=== PATIENT | male | born 1985 | race American Indian/Alaskan Native ===

== ENCOUNTER 2017-10-27 20:11 | Emergency (ER) | payer SELFPAY ==
[2017-10-27 20:22] VITALS: BMI 25.8
[2017-10-27 20:26] VITALS: BP 118/83; RESP 18; TEMP 99.6; O2SAT 96
[2017-10-27 20:27] VITALS: PULSE 99
--- NOTE | 2017-10-27 20:45 | ED PDOC ---
Arrival/HPI <Rian Ayala - Last Filed: 10/27/17 20:57> <Jonnathan Iqbal - Last Filed: 10/27/17 21:49> - General Chief Complaint: Syncope - History of Present Illness Narrative History of Present Illness (Text): 10/27/17 20:40 Pt is a 32 yo M with no significant PMH presents to ED with 2 day history of flu -like symptoms. Pt states that symptoms began with sore throat and progressed to productive cough with yellow sputum. Pt also complains of [place], one episode of dizziness, chest tightness, mild shortness of breath with exertion, chills, and fatigue. Pt denied nausea, vomiting, diarrhea, abdominal pain, fever, generalized body aches, dysuria, or sinus congestion/pain. Pt did not get flu vaccination this year. Pt denies any recent sick contacts. (Jonnathan Iqbal) Past Medical History - Provider Review Nursing Documentation Reviewed: Yes - Cardiac Hx Cardiac Disorders: No - Pulmonary Hx Respiratory Disorders: No - Neurological Hx Neurological Disorder: No - HEENT Hx HEENT Disorder: No - Renal Hx Renal Disorder: No - Endocrine/Metabolic Hx Endocrine Disorders: No - Hematological/Oncological Hx Blood Disorders: No - Integumentary Hx Dermatological Disorder: No - Musculoskeletal/Rheumatological Hx Musculoskeletal Disorders: No - Gastrointestinal Hx Gastrointestinal Disorders: No - Genitourinary/Gynecological Hx Genitourinary Disorders: No - Psychiatric Hx Psychophysiologic Disorder: No Hx Substance Use: Yes (marijuana) <Jonnathan Iqbal - Last Filed: 10/27/17 21:49> Family/Social History - Physician Review Nursing Documentation Reviewed: Yes Family/Social History: No Known Family HX Smoking Status: Current Some Days Smoker Hx Alcohol Use: No Hx Substance Use: Yes (marijuana) <Jonnathan Iqbal - Last Filed: 10/27/17 21:49> Allergies/Home Meds <Rian Ayala - Last Filed: 10/27/17 20:57> <Jonnathan Iqbal - Last Filed: 10/27/17 21:49> Allergies/Adverse Reactions: Allergies No Known Allergies Allergy (Verified 10/27/17 20:22) Review of Systems - Physician Review All systems were reviewed & negative as marked: Yes - Review of Systems Constitutional: Fatigue, Night Sweats. absent: Weight Change, Fevers Eyes: Normal ENT: Sore Throat. absent: Voice Changes, Rhinorrhea, Epistaxis, Sinus Congestion Respiratory: Cough, Sputum Cardiovascular: absent: Normal Gastrointestinal: absent: Normal Genitourinary Male: absent: Normal Musculoskeletal: absent: Normal Skin: absent: Normal Neurological: absent: Normal Endocrine: absent: Normal Hemo/Lymphatic: absent: Normal Psychiatric: absent: Normal <Jonnathan Iqbal - Last Filed: 10/27/17 21:49> Physical Exam Vital Signs Reviewed: Yes Temperature: Afebrile Blood Pressure: Normal Pulse: Regular Respiratory Rate: Normal Appearance: Positive for: Non-Toxic Pain Distress: None Mental Status: Positive for: Alert and Oriented X 3 - Systems Exam Head: Present: Atraumatic, Normocephalic Extroacular Muscles: Present: EOMI Mouth: Present: Moist Mucous Membranes Pharnyx: Present: ERYTHEMA. No: EXUDATE, TONSILS ENLARGED, Peritonsilar Swelling, Uvular Deviation, Muffled/Hoarse Voice Nose (Internal): Present: Normal Inspection Neck: Present: Normal Range of Motion, Trachea Midline. No: Meningeal Signs, Paraspinal Tenderness, Lymphadenopathy Respiratory/Chest: Present: Clear to Auscultation. No: Wheezes, Rales, Rhonchi Cardiovascular: Present: Regular Rate and Rhythm, Normal S1, S2. No: Murmurs, Rub, Muffled Abdomen: No: Tenderness, Distention, Peritoneal Signs, Rebound, Guarding, Hernias Back: Present: Normal Inspection Upper Extremity: Present: Normal Inspection Lower Extremity: Present: Normal Inspection Neurological: Present: GCS=15 Skin: Present: Warm, Dry, Normal Color Psychiatric: Present: Alert, Oriented x 3 <Jonnathan Iqbal - Last Filed: 10/27/17 21:49> Vital Signs Temp Pulse Resp BP Pulse Ox 10/27/17 20:26 99.6 F 99 H 18 118/83 96 10/27/17 20:22 99.6 F 96 H 18 118/ 96 Medical Decision Making <Rian Ayala - Last Filed: 10/27/17 20:57> - EKG Interpretation Interpreted by ED Physician: Yes Type: 12 lead EKG <Jonnathan Iqbal - Last Filed: 10/27/17 21:49> ED Course and Treatment: A 32 year old male with flu-like symptoms. In agreement with resident note, which includes further HPI details. Patient was seen and evaluated with resident , came up with plan and treatment together. (Rian Ayala) 10/27/17 20:49 Assessment: 32 yo M with no PMH presents to ED with flu-like symptoms. Plan: - EKG - Influenza swab 10/27/17 20:50 EKG showed NSR, left anterior fasicular block, rate 96. 10/27/17 21:39 Influenza negative. Results discussed with patient. However, due to significant number of false negative results and patient presenting with flu-like symptoms we will treat with Tamiflu. Advised patient to maintain adequate hydration. Avoid work for 2 days. Increase diet as tolerated. 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 / has examined the patient and agrees with the treatment plan. <Rian Ayala - Last Filed: 10/27/17 20:57> Disposition/Present on Arrival <Rian Ayala - Last Filed: 10/27/17 20:57> - Present on Arrival Any Indicators Present on Arrival: No History of DVT/PE: No History of Uncontrolled Diabetes: No Urinary Catheter: No History of Decub. Ulcer: No History Surgical Site Infection Following: None - Disposition Have Diagnosis and Disposition been Completed?: Yes Disposition Time: 21:41 Patient Plan: Discharge <Jonnathan Iqbal - Last Filed: 10/27/17 21:49> - Disposition Diagnosis: URI (upper respiratory infection) Disposition: HOME/ ROUTINE Patient Problems: Current Active Problems Problem Status Onset URI (upper respiratory infection) Acute Condition: STABLE Discharge Instructions (ExitCare): Viral Upper Respiratory Infection, Adult (DC ) Additional Instructions: 1. Maintain adequate hydration 2. Increase diet as tolerated 3. Complete 5 day course of Tamiflu 4. Use Motrin as needed for fever and body aches; take with food 5. Return to ED if symptoms worsen Prescriptions: Ibuprofen [Motrin] 600 mg PO Q8H PRN #20 tab PRN Reason: Pain, Mild (1-3) Oseltamivir Phosphate [Tamiflu] 75 mg PO BID #9 capsule Forms: [facility] (Lithuanian), WORK NOTE
--- NOTE | 2017-10-28 22:40 | CARD ---
APPROVED REPORT EKG Measurement Heart [id number] <Conclusion> Normal sinus rhythm Left anterior fascicular block Abnormal ECG
== END 2017-10-27 22:02 | disposition home or self-care (01) ==
LOC: MERGE 20:11 → ED 20:11
DX: J06.9 Acute upper respiratory infection, unspecified (principal); F17.210 Nicotine dependence, cigarettes, uncomplicated